=== PATIENT | female | born 1970 | race Caucasian/White ===

== ENCOUNTER 2025-04-16 11:03 | Emergency (ER) | payer OTHER, SELFPAY ==
[2025-04-16 11:04] VITALS: BP 136/103
--- NOTE | 2025-04-16 12:03 | ED.GENMED ---
History of Present Illness
General
Chief Complaint: Crisis Evaluation
Source: patient and family (mother)
Time Seen by Provider: 04/16/25 11:27
History of Present Illness
History of Present Illness:
54-year-old female presents to the emergency room for evaluation of severe depression and anxiety. Patient does not suit suicidal but is debilitated from her depressive and anxiety. She has lost a significant amount of weight over the past 3 to 4
months due to decreased oral intake. She also has loose stools. No fever, chills, abdominal pain. Patient has a nurse practitioner that she sees for medication prescription. She was started on lithium about a week ago. She does not see a
psychiatrist. She has not undergone any psychotherapy.
Past History
Past History
ED Past Medical History: NIDDM
Social History
Tobacco: Smoker
Phy Exam
Physical Exam
Physical Exam:
General: Awake, Alert, Oriented X3. Appears anxious, no acute distress
Vitals: unremarkable
Head: Atraumatic
Eyes: Pupils equal, EOMI
Throat: Airway intact, no exudates
Neck: Trachea midline
Lungs: Clear and equal b/l
Heart: Regular rate, no murmurs
Abd: Soft, Nontender, No pulsatile mass
Neuro: Nonfocal
Skin: Warm, dry, no rash
Extremities: pulses equal b/l, no edema
Course
Orders/Labs/Results
Orders:
Orders
04/16/25 11:43
Crisis Consult Urgent
Reason for Consult: Depression, anxiety
04/16/25 12:20
Alcohol Urgent
Beta HCG Quantitative Urgent
COVID-19 Antigen Urgent
Source: Nasal Swab
Complete Blood Count/With Diff Urgent
Comprehensive Metabolic Panel Urgent
04/16/25 13:07
Fentanyl, Urine Urgent
Urinalysis Reflex To Culture Urgent
Date Specimen was Collected: 04/16/25
Time Specimen was Collected: 12:13
Urine Drug Abuse Screen Urgent
Date Specimen was Collected: 04/16/25
Time Specimen was Collected: 12:14
Urine Microscopic Reflex Cult Urgent
Urine Culture Urgent
RAMAKRISHNA Source: U
Specimen Description:
Date Specimen was Collected: 04/16/25
Time Specimen was Collected: 12:13
04/16/25 15:08
Cephalexin Monohydrate [Keflex] 500 mg PO NOW STA
04/16/25 15:09
Lorazepam [Ativan] 2 mg PO NOW STA
04/16/25 15:17
Add On- LAB Urgent
Tests Added?: serum alcohol; hcg qual
Abnormal Lab Results
04/16/25 04/16/25
12:20 13:07
RBC 5.46 H 10^6/uL
(4.20-5.40)
Hgb 16.3 H g/dL
(12.0-16.0)
Hct 47.6 H %
(37.0-47.0)
Absolute Neuts (auto) 7.1 H 10^3/uL
(1.4-6.5)
Glucose 136 H mg/dl
(70-99)
Calcium 10.4 H mg/dl
(8.4-10.2)
Total Protein 9.5 H g/dl
(6.3-8.2)
Albumin 5.5 H g/dl
(3.5-5.0)
Urine Ketones 2+ A
(Negative)
Ur Occult Blood Reflex 2+ A
(Negative)
Urine Nitrite (Reflex) Positive A
(Negative)
Leukocyte Esterase Rfl 3+ A
(Negative)
Urine RBC 3-6 A /HPF
(0-2)
Urine WBC (Reflex) >100 A /HPF
(0-5)
Urine Bacteria (Reflex) Many A
(Negative)
Urine Albumin (Reflex) 2+ A
(Neg - Trace)
U Benzodiazepines Scrn Positive H
(Negative)
U Marijuana (THC) Screen Positive H
(Negative)
04/16/25 12:20
04/16/25 12:20
Vital Signs
Initial and Last Documented VS:
Initial Vital Signs
Temp Pulse Resp BP Pulse Ox
97.8 F 95 20 136/103 99
04/16/25 11:04 04/16/25 11:04 04/16/25 11:04 04/16/25 11:04 04/16/25 11:04
Last Documented Vital Signs
Temp Pulse Resp BP Pulse Ox
97.8 F 73 18 100/78 98
04/16/25 11:04 04/16/25 18:40 04/16/25 18:40 04/16/25 18:40 04/16/25 18:40
MDM/Problems Addressed
Differential Diagnosis Includes:
anxiety, depression, dehydration
MDM/Problems Addressed:
Patient medically cleared for psychiatric treatment inpatient psychiatric treatment. Urinalysis consistent with UTI. Antibiotics ordered.
*Pulse Oximetry
SaO2: 99
Oxygen Mode of Delivery: Room air
Patient hypoxic: no
*Critical Care Note
Total Time (30-74mins, 75-104mins- exclusive of procedures): Not Applicable
ED Attending Note
-
Portions of this chart may have been created with voice recognition software.� Occasional wrong word or��sound alike� substitutions may have occurred due to the inherent limitations of voice recognition software.
Discharge Plan
Departure
Patient Disposition: Psych Facility
Date of Disposition: 04/16/25
Time of Disposition: 15:59
Condition: Fair
Discharge Problem:
Depression, Anxiety, UTI (urinary tract infection)
Instructions: Depression, Adult (DC), Urinary tract infection in adults - ED (DC)
Prescriptions:
New
cephalexin 500 mg capsule
500 mg PO BID 7 Days Qty: 14 0RF
Referrals:
Milo Cruz MD [Family Provider]
Interventions
Interventions:
*Risk Screen - Suicide Last Done: 04/16/25 11:04
*General Assessment Last Done: 04/16/25 11:04
*Neglect/Abuse Screening Last Done: 04/16/25 11:04
*Nursing Disposition Last Done: 04/16/25 18:49
ED-Psychological Assessment Last Done: 04/16/25 11:34
Discharge Date and Time
Discharge Date/Time: 04/16/25 18:50
Print Language: [id number]
[2025-04-16 12:40] LABS: Hematocrit 47.6 % (37.0-47.0); Hemoglobin 16.3 g/dL (12.0-16.0); Mean Corp Hgb Conc. 34.2 g/dL (33.0-37.0); Mean Corpuscular Volume 87.2 fL (81.0-99.0); Nucleated Red Blood Cells % 0 %; Platelet Count 271 10^3/uL (130-400); Red Cell Dist. Width 12.1 % (11.5-14.5)
[2025-04-16 12:46] LABS: COVID-19 Antigen Negative (Negative)
[2025-04-16 12:49] LABS: ALT (SGPT) 17 U/L (0-35); AST (SGOT) 18 U/L (14-36); Albumin 5.5 g/dl (3.5-5.0); Alkaline Phosphatase 42 U/L (38-126); Blood Urea Nitrogen 14 mg/dl (7-17); Calcium 10.4 mg/dl (8.4-10.2); Carbon Dioxide 29 mmol/L (22-30); Chloride 101 mmol/L (98-107); Glucose 136 mg/dl (70-99); Potassium 4.0 mmol/L (3.5-5.1); Sodium 143 mmol/L (135-145); Total Protein 9.5 g/dl (6.3-8.2); eGFR > 60.00
[2025-04-16 13:20] LABS: Urine Character Cloudy (Clear)
[2025-04-16 14:18] LABS: Urine Squamous Cell >30 /LPF (Few)
[2025-04-16 14:20] LABS: Urine White Cell >100 /HPF (0-5)
[2025-04-16] MEDS: KEFLEX 500 MG PO (15:15)
[2025-04-16] MEDS: ATIVAN 2 MG PO (15:15)
[2025-04-16 18:15] LABS: Beta HCG Quantitative 5.79 mIU/ml
[2025-04-16 18:40] VITALS: BP 100/78
== END 2025-04-16 18:50 ==
LOC: EMR 11:03
PROVIDERS: EMERGENCY PHYSICIAN Emergency Medicine; FAMILY PHYSICIAN Family Medicine
DX: F32.A Depression, unspecified (principal); F41.9 Anxiety disorder, unspecified; N39.0 Urinary tract infection, site not specified; E11.9 Type 2 diabetes mellitus without complications; F17.200 Nicotine dependence, unspecified, uncomplicated
CPT/HCPCS: 99283; 80053; 80306; 80307; 81003; 81015; 82077; 84702; 85025; 87086; 87811